=== PATIENT | male | born 2000 | race African-American/Black ===

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

== ENCOUNTER 2019-09-14 15:20 | Emergency (ER) | payer OTHER ==
[~2019-09-14] VITALS: Ht 180.3 cm; Wt 75.0 kg
[2019-09-14 15:33] VITALS: Ht 180.3 cm; Wt 75.0 kg
[2019-09-14 16:04] LABS: APPEARANCE HAZY (CLEAR); BILIRUBIN NEGATIVE (NEGATIVE); COLOR YELLOW (YELLOW); GLUCOSE NEGATIVE (NEGATIVE); KETONE NEGATIVE (NEGATIVE); NITRITE NEGATIVE (NEGATIVE); PROTEIN NEGATIVE (NEGATIVE); SPECIFIC GRAVITY 1.015 (1.005-1.020); UROBILINOGEN NORMAL (NORMAL)
[2019-09-14 16:05] LABS: BACTERIA FEW /hpf (NEGATIVE); RED CELLS - URINE OCC /hpf (0-5)
[2019-09-14 17:34] VITALS: BP 115/72
== END 2019-09-14 17:06 | disposition home or self-care (01) ==
LOC: D.ER 15:20
PROVIDERS: Family Medicine
DX: R36.9 Urethral discharge, unspecified (principal)

== ENCOUNTER 2020-02-23 12:15 | Emergency (ER) | payer OTHER ==
[~2020-02-23] VITALS: Ht 180.3 cm; Wt 72.7 kg
[2020-02-23 12:23] VITALS: BP 115/68; Ht 180.3 cm; Wt 72.7 kg
[2020-02-23] MEDS ORDERED: AUGMENTIN 875-11 TAB PO (12:53)
[2020-02-23] MEDS ORDERED: ACETAMINOPHEN500 M1 PO (13:15)
[2020-02-23] MEDS ORDERED: IBUPROFEN800 MG PO (13:15)
[2020-02-23] MEDS ORDERED: CYCLOBENZAPRINE10 MG PO (13:15)
== END 2020-02-23 13:36 | disposition home or self-care (01) ==
LOC: D.ER 12:15
DX: S69.91XA Unspecified injury of right wrist, hand and finger(s), initial encounter (principal); L03.011 Cellulitis of right finger; S63.91XA Sprain of unspecified part of right wrist and hand, initial encounter; M79.18 Myalgia, other site; M79.621 Pain in right upper arm; W19.XXXA Unspecified fall, initial encounter; Y93.67 Activity, basketball; Y92.9 Unspecified place or not applicable

== ENCOUNTER 2021-01-12 09:47 | Emergency (ER) | payer SELFPAY ==
[~2021-01-12] VITALS: Ht 180.3 cm; Wt 68.2 kg
[~2021-01-12 09:47] MED LIST: ACETAMINOPHEN500 M1 PO; AUGMENTIN 875-11 TAB PO; CYCLOBENZAPRINE10 MG PO; IBUPROFEN800 MG PO
[2021-01-12 09:55] VITALS: BP 128/80; Ht 180.3 cm; Wt 68.2 kg
[2021-01-12] MEDS ORDERED: DOXYCYCLINE HY100 M2 PO (10:12)
[2021-01-13 11:09] LABS: CHLAMYDIA TRACHOMATIS, NAA Positive (Negative)
== END 2021-01-12 10:54 | disposition home or self-care (01) ==
LOC: D.ER 09:47
PROVIDERS: Emergency Medicine
DX: A64 Unspecified sexually transmitted disease (principal)